=== PATIENT | male | born 1970 | race Caucasian/White ===

== ENCOUNTER 2017-07-04 15:56 | Inpatient (IN) | payer BC ==
[~2017-07-04] VITALS: Ht 180.3 cm; Wt 63.7 kg
[2017-07-04] MEDS ORDERED: ALBUTEROL/IPRATROPIUM 2.5MG/0.5MG, 3 ML ONE ×2 (16:36→19:11)
[2017-07-04] MEDS ORDERED: methylPREDNISolone SOD SUCC 125 MG/2 ML ONE (16:42)
[2017-07-04] MEDS ORDERED: ALBUTEROL/IPRATROPIUM 2.5MG/0.5MG, 3 ML NPPB ONE ×2 (17:00→17:30)
[2017-07-04] MEDS ORDERED: SODIUM CHLORIDE FLUSH 10ML SYR IVF ONE (17:00)
[2017-07-04] MEDS ORDERED: methylPREDNISolone SOD SUCC 125 MG/2 ML IVP ONE (17:00)
[2017-07-04] MEDS ORDERED: SODIUM CHLORIDE 0.9% 1,000ML IVBOLUS ONE (17:00)
[2017-07-04 17:06] LABS: HEMATOCRIT 43.9 % (39.2-51.8); HEMOGLOBIN 14.7 g/dL (13.7-18.0); WHITE BLOOD COUNT 8.8 x10^3/uL (3.4-10)
[2017-07-04 17:12] LABS: BLOOD UREA NITROGEN 21 mg/dL (7-18)
[2017-07-04] MEDS ORDERED: ZOLPIDEM 5MG TABLET PO PRN (21:00)
[2017-07-04] MEDS ORDERED: ONDANSETRON 2MG/ML, 2ML IVPush PRN (21:00)
[2017-07-04 22:00] VITALS: BP 126/64
[2017-07-04] MEDS ORDERED: IPRA12.9 INH (22:40)
[2017-07-04] MEDS ORDERED: ALBU8.5H8 INH (22:40)
[2017-07-04] MEDS ORDERED: ZOLP5TAB PO (22:40)
[2017-07-04] MEDS: SODIUM CHLORIDE 0.9% 1,000 ML IV SCH (22:58)
[2017-07-04] MEDS: LACTULOSE 10 GM/15 ML UDC PO SCH (23:04)
[2017-07-04] MEDS: NICOTINE 7 MG/24 HR PATCH.TD24 TD SCH (23:04)
[2017-07-04] MEDS: ENOXAPARIN 40 MG/0.4 ML SQ SCH (23:04)
[2017-07-04] MEDS: GUAIFENESIN/DM 200-20MG, 10ML UDC PO PRN (23:15)
[2017-07-05] MEDS: methylPREDNISolone SOD SUCC 40 MG/ML IV SCH ×2 (00:22→09:58)
[2017-07-05] MEDS ORDERED: ALBUTEROL/IPRATROPIUM 2.5MG/0.5MG, 3 ML NPPB PRN (00:30)
[2017-07-05] MEDS: ALBUTEROL/IPRATROPIUM 2.5MG/0.5MG, 3 ML HHN SCH ×2 (03:00→03:30)
[2017-07-05 03:01] VITALS: BP 133/69
[2017-07-05 05:31] LABS: HEMATOCRIT 40.8 % (39.2-51.8); HEMOGLOBIN 13.8 g/dL (13.7-18.0); WHITE BLOOD COUNT 10.4 x10^3/uL (3.4-10)
[2017-07-05 05:44] LABS: BLOOD UREA NITROGEN 23 mg/dL (7-18)
[2017-07-05 06:39] VITALS: BP 117/65
[2017-07-05] MEDS: ALBUTEROL/IPRATROPIUM 2.5MG/0.5MG, 3 ML NPPB SCH ×6 (06:44→23:00)
[2017-07-05] MEDS: ACETAMINOPHEN 325 MG TABLET PO PRN ×2 (07:06→16:16)
[2017-07-05] MEDS: LACTULOSE 10 GM/15 ML UDC PO SCH ×2 (09:58→22:45)
[2017-07-05] MEDS: GUAIFENESIN/DM 200-20MG, 10ML UDC PO PRN ×2 (09:58→16:16)
[2017-07-05] MEDS: SODIUM CHLORIDE 0.9% 1,000 ML IV SCH ×2 (09:59→22:51)
[2017-07-05] MEDS: FLUTICASONE/VILANTEROL 200-25MCG/INH INH SCH (13:01)
[2017-07-05 13:34] VITALS: BP 112/62
[2017-07-05] MEDS: CEFTRIAXONE PMX 1GM/50ML 50 ML IV SCH (16:20)
[2017-07-05] MEDS: GUAIFENESIN 200 MG TABLET PO SCH ×2 (16:20→22:49)
[2017-07-05] MEDS: methylPREDNISolone SOD SUCC 125 MG/2 ML IV SCH ×2 (16:20→22:46)
[2017-07-05 19:16] VITALS: BP 129/64
[2017-07-05] MEDS: ENOXAPARIN 40 MG/0.4 ML SQ SCH (22:48)
[2017-07-05] MEDS: NICOTINE 7 MG/24 HR PATCH.TD24 TD SCH (22:50)
[2017-07-05] MEDS: AZITHROMYCIN 500 MG in SODIUM CHLORIDE 0.9% 250 ML IV SCH (23:16)
[2017-07-06] MEDS: ALBUTEROL/IPRATROPIUM 2.5MG/0.5MG, 3 ML NPPB SCH ×6 (02:16→23:00)
[2017-07-06] MEDS: methylPREDNISolone SOD SUCC 125 MG/2 ML IV SCH ×4 (03:16→22:48)
[2017-07-06 04:01] VITALS: BP 104/58
[2017-07-06] MEDS: GUAIFENESIN 200 MG TABLET PO SCH ×4 (05:23→22:47)
[2017-07-06] MEDS: SODIUM CHLORIDE 0.9% 1,000 ML IV SCH ×2 (07:53→18:04)
[2017-07-06] MEDS: LACTULOSE 10 GM/15 ML UDC PO SCH ×2 (07:54→21:00)
[2017-07-06] MEDS: FLUTICASONE/VILANTEROL 200-25MCG/INH INH SCH (07:54)
[2017-07-06 07:59] VITALS: BP 129/70
[2017-07-06] MEDS: ACETAMINOPHEN 325 MG TABLET PO PRN ×3 (08:03→22:47)
[2017-07-06] MEDS: GUAIFENESIN/DM 200-20MG, 10ML UDC PO PRN ×2 (12:13→18:04)
[2017-07-06 12:39] VITALS: BP 128/72
[2017-07-06] MEDS: CEFTRIAXONE PMX 1GM/50ML 50 ML IV SCH (15:23)
[2017-07-06 20:11] VITALS: BP 142/75
[2017-07-06] MEDS: ENOXAPARIN 40 MG/0.4 ML SQ SCH (22:48)
[2017-07-06] MEDS: AZITHROMYCIN 500 MG in SODIUM CHLORIDE 0.9% 250 ML IV SCH (22:48)
[2017-07-06] MEDS: NICOTINE 7 MG/24 HR PATCH.TD24 TD SCH (22:48)
[2017-07-07] MEDS: ALBUTEROL/IPRATROPIUM 2.5MG/0.5MG, 3 ML NPPB SCH ×6 (03:23→22:50)
[2017-07-07] MEDS: GUAIFENESIN/DM 200-20MG, 10ML UDC PO PRN ×4 (03:31→22:02)
[2017-07-07] MEDS: methylPREDNISolone SOD SUCC 125 MG/2 ML IV SCH ×4 (03:31→21:35)
[2017-07-07] MEDS: SODIUM CHLORIDE 0.9% 1,000 ML IV SCH ×2 (03:31→13:02)
[2017-07-07 04:13] VITALS: BP 138/68
[2017-07-07] MEDS: GUAIFENESIN 200 MG TABLET PO SCH ×4 (05:54→21:36)
[2017-07-07 07:25] VITALS: BP 143/69
[2017-07-07 07:54] VITALS: BP 146/68
[2017-07-07] MEDS: LACTULOSE 10 GM/15 ML UDC PO SCH ×3 (08:14→21:35)
[2017-07-07] MEDS: FLUTICASONE/VILANTEROL 200-25MCG/INH INH SCH (09:58)
[2017-07-07] MEDS: ACETAMINOPHEN 325 MG TABLET PO PRN ×3 (09:59→22:02)
[2017-07-07 14:13] VITALS: BP 141/67
[2017-07-07] MEDS: CEFTRIAXONE PMX 1GM/50ML 50 ML IV SCH (15:08)
[2017-07-07] MEDS ORDERED: POTASSIUM PHOSPHATE 44 MEQ in SODIUM CHLORIDE 0.9% 500 ML IV ONE (15:30)
[2017-07-07 19:17] VITALS: BP 156/72
[2017-07-07] MEDS: AZITHROMYCIN 500 MG in SODIUM CHLORIDE 0.9% 250 ML IV SCH (21:33)
[2017-07-07] MEDS: ENOXAPARIN 40 MG/0.4 ML SQ SCH (21:33)
[2017-07-07] MEDS: NICOTINE 7 MG/24 HR PATCH.TD24 TD SCH (21:34)
[2017-07-08 02:02] VITALS: BP 150/82
[2017-07-08] MEDS: methylPREDNISolone SOD SUCC 125 MG/2 ML IV SCH ×2 (04:18→08:17)
[2017-07-08] MEDS: ALBUTEROL/IPRATROPIUM 2.5MG/0.5MG, 3 ML NPPB SCH ×2 (06:00→10:00)
[2017-07-08 07:00] VITALS: BP 133/65
[2017-07-08] MEDS: GUAIFENESIN 200 MG TABLET PO SCH ×2 (07:50→11:00)
[2017-07-08] MEDS: SODIUM CHLORIDE 0.9% 1,000 ML IV SCH (08:16)
[2017-07-08] MEDS: FLUTICASONE/VILANTEROL 200-25MCG/INH INH SCH (08:16)
[2017-07-08] MEDS: LACTULOSE 10 GM/15 ML UDC PO SCH (08:17)
[2017-07-08] MEDS ORDERED: PRED10TA PO (12:25)
[2017-07-08] MEDS ORDERED: AZIT500T PO (12:25)
[2017-07-08] MEDS ORDERED: GUAI200T3 PO (12:25)
[2017-07-08] MEDS ORDERED: IPRA3AMP NPPB (12:25)
[2017-07-08] MEDS ORDERED: FLUT1BLS INH (12:25)
[2017-07-08] MEDS ORDERED: NICO1PAT10 TD (12:25)
[2017-07-08] MEDS ORDERED: CEFD300C37 PO (12:25)
[2017-07-08 13:49] VITALS: BP 158/77
== END 2017-07-08 14:39 | disposition home or self-care (01) | DRG 189 ==
LOC: ED 17:46 → SUATTDRO 18:59 → EDIP 20:44 → 4NOR 22:00
PROVIDERS: ADMIT Hospitalist; ATTEND Internal Medicine
DX: J96.01 Acute respiratory failure with hypoxia (principal); J44.0 Chronic obstructive pulmonary disease with (acute) lower respiratory infection; J44.1 Chronic obstructive pulmonary disease with (acute) exacerbation; F17.210 Nicotine dependence, cigarettes, uncomplicated; J20.9 Acute bronchitis, unspecified; Z96.643 Presence of artificial hip joint, bilateral; Z98.1 Arthrodesis status
CPT/HCPCS: 36415; 71010; 80048; 82040; 83605; 83735; 84100; 85025; 93005; 94640; 96361; 96374; J0456; J0696; J1650; J7620; J2920; J2930; J7030; J7040; J7050

== ENCOUNTER 2017-09-11 13:58 | Emergency (ER) | payer BC ==
[~2017-09-11] VITALS: Ht 180.3 cm; Wt 66.4 kg
[~2017-09-11 13:58] MED LIST: ALBU8.5H8 INH; AZIT500T PO; CEFD300C37 PO; FLUT1BLS INH; GUAI200T3 PO; IPRA12.9 INH; IPRA3AMP NPPB; NICO-485 TD; PRED10TA PO; ZOLP5TAB PO
[2017-09-11 14:00] VITALS: BP 127/77
== END 2017-09-11 15:42 | disposition home or self-care (01) ==
LOC: ED 15:25
DX: B02.9 Zoster without complications (principal); J44.9 Chronic obstructive pulmonary disease, unspecified
CPT/HCPCS: 99283

== ENCOUNTER 2018-06-18 18:28 | Emergency (ER) | payer BC ==
[~2018-06-18] VITALS: Ht 177.8 cm; Wt 64.3 kg
[~2018-06-18 18:28] MED LIST changes: -IPRA3AMP NPPB; +IPRA3AMP30 NPPB
[2018-06-18 22:10] VITALS: BP 118/70
[2018-06-18] MEDS ORDERED: KETOROLAC 30 MG/1 ML IM ONE (23:00)
== END 2018-06-18 23:19 | disposition home or self-care (01) ==
LOC: ED 19:48
DX: M25.462 Effusion, left knee (principal); M87.852 Other osteonecrosis, left femur; J44.9 Chronic obstructive pulmonary disease, unspecified; F17.200 Nicotine dependence, unspecified, uncomplicated
CPT/HCPCS: 99284

== ENCOUNTER 2018-11-21 14:45 | Emergency (ER) | payer BC ==
[~2018-11-21] VITALS: Ht 180.3 cm; Wt 61.4 kg
[2018-11-21 15:03] VITALS: BP 97/54
[2018-11-21] MEDS ORDERED: ALBUTEROL/IPRATROPIUM 2.5MG/0.5MG, 3 ML NPPB SCH (15:30)
[2018-11-21 15:37] LABS: RAPID INFLUENZA A Negative (Negative); RAPID INFLUENZA B Negative (Negative)
[2018-11-21 15:39] LABS: MEAN CORPUSCULAR HEMOGLOBIN 31.3 pg (27.5-34.5); MEAN CORPUSCULAR HGB CONC 33.8 g/dL (33.2-36.2); MEAN CORPUSCULAR VOLUME 92.6 fL (81-97); PLATELET COUNT 213 x10^3/uL (130-400); RED BLOOD COUNT 4.53 x10^6/uL (4.38-5.82); RED CELL DISTRIBUTION WIDTH 14.2 % (9.4-14.8)
[2018-11-21 15:50] LABS: ALBUMIN 2.9 g/dL (3.4-5.0); ANION GAP 7 mmol/L (5-15); CALCIUM 9.2 mg/dL (8.5-10.1); CHLORIDE 107 mmol/L (98-107); CREATININE 1.21 mg/dL (0.7-1.3)
[2018-11-21 15:56] LABS: MD YES
[2018-11-21 15:58] LABS: BAND#(MANUAL) 2.34 x10^3/uL; BANDS%(MANUAL) 16 % (0-7); EOS#(MANUAL) 0.29 x10^3/uL (0.0-0.4); EOS% (MANUAL) 2 % (1-7); LYMPH#(MANUAL) 2.77 x10^3/uL (1-3.4); LYMPHS% (MANUAL) 19 % (22-44); METAMYELOCYTES# (MANUAL) 0.15 x10^3/uL (0-0); METAMYELOCYTES% (MANUAL) 1 % (0-1); MONOS#(MANUAL) 1.02 x10^3/uL (0.3-2.7); MONOS% (MANUAL) 7 % (2-9); SEG#(MANUAL) 8.03 x10^3/uL (1.8-6.8); SEGS% (MANUAL) 55 % (42-75)
[2018-11-21 15:59] LABS: <PLATELET ESTIMATE> ADEQUATE; <PLT MORPHOLOGY> NORMAL PLT MORPH; <RBC MORPHOLOGY> NORMAL
--- NOTE | 2018-11-21 17:50 | NUR ---
CALLED FOR ROOM, NO ANSWER.
--- NOTE | 2018-11-21 18:04 | NUR ---
CALLED FOR ROOM, NO ANSWER.
--- NOTE | 2018-11-21 18:21 | NUR ---
3RD CALL FOR ROOM, NO ANSWER.
--- NOTE | 2018-11-21 19:33 | NUR ---
Called patient at [phone] as for concern that CXR at today showed PNA and labs in this ED showed signs of sepsis. Patient told me that he will return to this ED for futher treatment and that he left this ED as "the wait time to get to a room was too long."
[2018-11-22] MEDS ORDERED: GABA300C10 PO (07:25)
== END 2018-11-21 18:40 ==
LOC: ED 18:04
DX: J18.1 Lobar pneumonia, unspecified organism (principal)
CPT/HCPCS: 36415; 80048; 82040; 83605; 84145; 85025; 87040; 87400; 93005; 99284

== ENCOUNTER 2018-11-22 07:04 | Emergency (ER) | payer BC ==
[~2018-11-22] VITALS: Ht 177.8 cm; Wt 60.6 kg
[2018-11-22] MEDS ORDERED: GABA300C10 PO (07:25)
--- NOTE | 2018-11-22 07:26 | NUR ---
PT PRESENTED TO ED WITH COUGH AND SHORTNESS OF BREATH SINCE WEDNESDAY. PT WAS SEEN AT YESTERDAY AND WAS DIAGNOSED HIM WITH PNEUMONIA. PT STATED THAT HE HAS HAD IT 3 TIMES SINCE SEPTEMBER.
--- NOTE | 2018-11-22 07:27 | NUR ---
PT PLACED ON BP AND CONT PULSE OXIMETER. ASSESSMENT COMPLETED AND PA AT BEDSIDE. REPORT GIVEN TO TACOS ERNANDEZ.
[2018-11-22] MEDS ORDERED: CEFTRIAXONE 1,000 MG in SODIUM CHLORIDE 0.9% 50 ML IVPB ONE (07:30)
[2018-11-22] MEDS ORDERED: AZITHROMYCIN 500 MG in SODIUM CHLORIDE 0.9% 250 ML IVPB ONE (07:30)
[2018-11-22] MEDS ORDERED: SODIUM CHLORIDE FLUSH 10ML SYR IVF ONE (07:30)
[2018-11-22 08:12] LABS: BASOPHILS # (AUTO) 0.05 x10^3/uL (0-0.1); BASOPHILS % (AUTO) 0 % (0-1); EOSINOPHILS # (AUTO) 0.52 x10^3/uL (0-0.4); EOSINOPHILS % (AUTO) 5 % (1-7); LYMPHOCYTES # (AUTO) 2.39 x10^3/uL (1-3.4); LYMPHOCYTES % (AUTO) 21 % (22-44); MD NO; MEAN CORPUSCULAR HEMOGLOBIN 30.6 pg (27.5-34.5); MEAN CORPUSCULAR VOLUME 92.8 fL (81-97); MEAN PLATELET VOLUME 8.4 fL (7.4-10.4); MONOCYTES # (AUTO) 0.92 x10^3/uL (0.2-0.8); MONOCYTES % (AUTO) 8 % (2-9); NEUTROPHILS # (AUTO) 7.59 x10^3/uL (1.8-6.8); NEUTROPHILS % (AUTO) 66 % (42-75); PLATELET COUNT 221 x10^3/uL (130-400); RED BLOOD COUNT 4.23 x10^6/uL (4.38-5.82); RED CELL DISTRIBUTION WIDTH 14.7 % (9.4-14.8)
[2018-11-22] MEDS ORDERED: CEFTRIAXONE PMX 1GM/50ML 50 ML ONE (08:39)
--- NOTE | 2018-11-22 08:54 | NUR ---
Confirmed BC x2 were drawn when pt was here yest so no need to repeat today prior to abx being hung.
--- NOTE | 2018-11-22 09:12 | NUR ---
BREAK RN-IV ROCEPHIN INFUSION COMPLETE. STARTED IV AZITHROMYCIN. VS UPDATED AND WNL. PT RESTING WITH NO COMPLAINTS.
--- NOTE | 2018-11-22 09:26 | NUR ---
POC to d/c after abx infused. Pt aware
--- NOTE | 2018-11-22 09:50 | NUR ---
REPORT RECEIVED FROM OMA BALDERRAMA. ASSUMED CARE OF PT. PT CURRENTLY RESTING ON GURNEY. NAD NOTED. SKIN PWD. RESP EVEN AND EQAUL. PT AWARE WE ARE WAITING FOR IV ABX TO FINISH. PT DENIES NEEDS AT THIS TIME. CALL LIGHT WITHIN REACH. WILL CONT TO MONITOR PT.
[2018-11-22 10:52] VITALS: BP 120/70
== END 2018-11-22 10:54 | disposition home or self-care (01) ==
LOC: ED 10:20
DX: J18.1 Lobar pneumonia, unspecified organism (principal); J44.9 Chronic obstructive pulmonary disease, unspecified
CPT/HCPCS: 36415; 83605; 85025; 96365; 96367; 99283; J0456; J0696; J7050